=== PATIENT | female | born 1980 | race American Indian/Alaskan Native ===

== ENCOUNTER 2020-08-24 14:13 | Emergency (ER) | payer OTHER ==
[2020-08-24] MEDS ORDERED: FLUORESCEIN 1 MG STRIP OP ONE (14:53)
[2020-08-24] MEDS ORDERED: TETRACAINE 0.5% OPHTH SOLN 4ML OU ONE (14:53)
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
[2020-08-24 16:07] VITALS: BP 140/86
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
== END 2020-08-24 16:27 | disposition home or self-care (01) ==
LOC: ED 14:13
DX: S05.01XA Injury of conjunctiva and corneal abrasion without foreign body, right eye, initial encounter (principal); Z79.899 Other long term (current) drug therapy; Z98.890 Other specified postprocedural states; Z88.6 Allergy status to analgesic agent; Z98.51 Tubal ligation status; X58.XXXA Exposure to other specified factors, initial encounter; Y93.89 Activity, other specified; Y92.89 Other specified places as the place of occurrence of the external cause; Y99.8 Other external cause status
CPT/HCPCS: 99283